=== PATIENT | male | born 1985 | race Caucasian/White ===

== ENCOUNTER 2024-10-04 04:22 | Emergency (ER) | payer OTHER ==
[~2024-10-04] VITALS: Ht 177.8 cm; Wt 87.0 kg
[2024-10-04 04:24] VITALS: O2SAT 99
[2024-10-04] MEDS: LEVETIRACETAM 1000MG PREMIX 100 ML IV NR (04:53)
[2024-10-04 06:17] LABS: CARBON DIOXIDE 28 mEq/L (21-32); CHLORIDE 104 mEq/L (98-107); POTASSIUM 3.7 mEq/L (3.5-5.1); SODIUM 139 mEq/L (136-145)
[2024-10-04 06:18] LABS: CALCIUM 8.7 mg/dL (8.7-10.4)
[2024-10-04 06:23] LABS: GLUCOSE 139 mg/dL (70-105); UREA NITROGEN BLOOD 14 mg/dL (9-23)
[2024-10-04 06:37] LABS: BASOPHILS % 1.1 % (0.0-2.0); ETHANOL BLOOD < 10 mg/dL (<10); HEMATOCRIT. 43.6 % (42.0-52.0); HEMOGLOBIN. 14.9 g/dL (14.0-18.0); LYMPHOCYTES % 17.6 % (20.0-50.0); MEAN CORPUSCULAR HEMOGLOBIN 31.8 pg (28.0-32.0); MEAN CORPUSCULAR HGB CONC 34.2 g/dL (31.0-37.0); MEAN CORPUSCULAR VOLUME 92.9 fL (80.0-94.0); MEAN PLATELET VOLUME 7.3 fl (7.4-10.4); MONOCYTES % 6.9 % (2.0-8.0); NEUTROPHILS % 74.4 % (40.0-76.0); PLATELET 264 x1000/uL (130-400); RED CELL DISTRIBUTION WIDTH 13.4 % (11.6-14.6); WHITE BLOOD COUNT 8.1 x1000/uL (4.5-11.0)
[2024-10-04] MEDS: ACETAMINOPHEN 650MG/20.3ML UDC PO PRN (11:55)
[2024-10-04 12:46] LABS: *AMPHETAMINES SCREEN URINE NEGATIVE (NEGATIVE); *BARBITURATES SCREEN URINE NEGATIVE (NEGATIVE); *BENZODIAZEPINES SCREEN URINE PRESUMPTIVE POSITIVE (NEGATIVE); *COCAINE SCREEN URINE NEGATIVE (NEGATIVE); CANNABINOID URINE SCREEN PRESUMPTIVE POSITIVE (NEGATIVE); ECSTASY MDMA SCREEN URINE NEGATIVE (NEGATIVE); METHADONE URINE SCREEN NEGATIVE (NEGATIVE); OPIATES URINE SCREEN NEGATIVE (NEGATIVE); PHENCYCLIDINE URINE SCREEN NEGATIVE (NEGATIVE)
[2024-10-04] MEDS ORDERED: PHENYTOIN SODIUM 100MG/2ML VIAL IV ONE (15:30)
[2024-10-04] MEDS: PHENYTOIN SODIUM 1000MG in SODIUM CHLORIDE 0.9% 100ML IV ONE (16:10)
[2024-10-04 17:45] VITALS: BP 115/80; PULSE 80; RESP 16; TEMP 36.94740; O2SAT 99
== END 2024-10-04 08:00 | disposition admitted as inpatient to this hospital (09) ==
LOC: ER 04:22 → EDBEDREQ 06:03 → ER 08:00
DX: G40.909 Epilepsy, unspecified, not intractable, without status epilepticus (principal); Z79.899 Other long term (current) drug therapy
CPT/HCPCS: 80305; 80048; 80320; 80185; 85025; 36415; 70450; 93005; 96367; 96365; 99285; J1953; J1165; J7050; Z7610; G0480